=== PATIENT | female | born 1930 | race Caucasian/White ===

== ENCOUNTER → 2018-02-26 | Outpatient (CLI) | payer MEDICARE ==
[~2018-02-26] MED LIST: AEC81 PO; ALBU8.5H8 IH; ATOR10 PO; DILT240T13 PO; FOLI1TAB15 PO; FURO40TA5 PO; IOHEXOL 350 MG/ML 100ML INFUS..BTL IV ONE; ISOS30TA6 PO; LEVO50TA4 PO; POTA10TA18 PO; RIVA15TA PO
== END | disposition home or self-care (01) ==
LOC: RAH 08:05
PROVIDERS: ATTEND Internal Medicine Cardiovascular Disease
DX: I70.202 Unspecified atherosclerosis of native arteries of extremities, left leg (principal); I70.90 Unspecified atherosclerosis; N28.1 Cyst of kidney, acquired; N32.89 Other specified disorders of bladder; K44.9 Diaphragmatic hernia without obstruction or gangrene; K76.89 Other specified diseases of liver; M47.899 Other spondylosis, site unspecified
CPT/HCPCS: 75635; Q9967

== ENCOUNTER 2018-04-16 05:34 | Day surgery (SDC) | payer MEDICARE ==
[2018-04-14 10:44] VITALS: BP 161/79
[2018-04-14 10:58] LABS: BASOPHILS % (AUTO) 1.4 % (0.0-5.0); EOSINOPHILS % (AUTO) 4.1 % (0.0-8.0); HEMATOCRIT 40.3 % (36-48); LYMPHOCYTES % (AUTO) 12.3 % (21.0-51.0); MEAN CORPUSCULAR HEMOGLOBIN 31.3 pg (27.0-33.0); MEAN CORPUSCULAR HGB CONC 33.1 g/dL (32.0-36.0); MEAN CORPUSCULAR VOLUME 94.4 fL (79-99); MONOCYTES % (AUTO) 8.8 % (3.0-13.0); NEUTROPHILS % (AUTO) 73.4 % (40.0-77.0); PLATELET COUNT (AUTO) 366 K/uL (130-400); RED BLOOD CELL COUNT(AUTO) 4.27 MIL/uL (4.00-5.50); RED CELL DISTRIBUTION WIDTH 14.4 % (11.0-15.5)
[2018-04-14 11:00] LABS: BILIRUBIN,URINE Negative (NEGATIVE); COLOR,URINE Yellow (YELLOW); GLUCOSE, URINE (UA) Negative (NEGATIVE); KETONES,URINE Negative (NEGATIVE); LEUKOCYTE ESTERASE ,URINE Trace (NEGATIVE); NITRATE,URINE Negative (NEGATIVE); OCCULT BLOOD,URINE Negative (NEGATIVE); PH,URINE 5.5 (5.0-8.0); PROTEIN,URINE Negative (NEGATIVE)
[2018-04-14 11:02] LABS: APPEARANCE,URINE CLEAR (CLEAR)
[2018-04-14 11:08] LABS: BACTERIA,URINE Rare /HPF (None Seen); CREATININE 1.1 mg/dL (0.5-1.5); POTASSIUM 4.4 mmol/L (3.5-5.1); RBC,URINE 0-1 /HPF (0-1); SQUAMOUS EPITHELIAL CELL,UR Rare /HPF (0-2); WBC,URINE 0-1 /HPF (0-1)
--- NOTE | 2018-04-14 11:14 | NUR ---
med paged I Rk MAN to inform that patient took Xarelto this am. instructed pt to hold effective immediately. awaiting for call back
[2018-04-14 12:08] LABS: INR 1.6 (0.85-1.15); PARTIAL THROMBOPLASTIN TIME 46.2 SEC (26.3-35.5); PROTHROMBIN TIME 16.6 SEC (9.6-11.6)
--- NOTE | 2018-04-15 10:14 | NUR ---
NOTE REPORTED ABNORMAL PT /INR AND XRAY TO [facility]. NO FURTHER ORDERS GIVEN.
[~2018-04-16] VITALS: Ht 152.4 cm; Wt 32.9 kg
[2018-04-16] VITALS (9 sets, daily range): BP systolic 96–150; BP diastolic 39–59
[~2018-04-16 05:34] MED LIST changes: -ALBU8.5H8 IH; -ATOR10 PO; +ATOR10TA69 PO; +CARV6.25 PO; +CYAN100T PO; -IOHEXOL 350 MG/ML 100ML INFUS..BTL IV ONE; -ISOS30TA6 PO; -POTA10TA18 PO; +TRAM50TA4 PO; +vitamin d3 PO
[2018-04-16] MEDS ORDERED: SODIUM CHLORIDE 0.9% 1000ML 1,000 ML IV ONE (06:22)
[2018-04-16] MEDS ORDERED: SODIUM BICARB 50MEQ 50ML VIAL ONE (07:04)
[2018-04-16] MEDS ORDERED: NITROGLYCERIN 5 MG/ML 10 ML VIAL IV ONE (07:04)
[2018-04-16] MEDS ORDERED: HEPARIN SODIUM 1000UNIT/ML 10ML VIAL ONE (07:04)
[2018-04-16] MEDS ORDERED: MIDAZOLAM HCL 1 MG/ML 2ML VIAL ONE (07:05)
[2018-04-16] MEDS ORDERED: MEPERIDINE-PF 25 MG/ML SYG ONE (07:05)
[2018-04-16] MEDS ORDERED: LIDOCAINE HCL 2% 20ML ONE (07:05)
[2018-04-16] MEDS ORDERED: IODIXANOL 320 MG/ML 100 ML VIAL ONE (07:05)
[2018-04-16] MEDS ORDERED: SODIUM CHLORIDE 0.9% 1000ML 1,000 ML IV SCH (09:30)
== END 2018-04-16 14:00 | disposition home or self-care (01) ==
LOC: DAH 05:34
PROVIDERS: ATTEND Internal Medicine Cardiovascular Disease
DX: K55.059 Acute (reversible) ischemia of intestine, part and extent unspecified (principal); I70.218 Atherosclerosis of native arteries of extremities with intermittent claudication, other extremity; I70.0 Atherosclerosis of aorta; I21.9 Acute myocardial infarction, unspecified; I48.2 Chronic atrial fibrillation; E78.5 Hyperlipidemia, unspecified; E03.9 Hypothyroidism, unspecified; I25.10 Atherosclerotic heart disease of native coronary artery without angina pectoris; Z98.890 Other specified postprocedural states; I70.213 Atherosclerosis of native arteries of extremities with intermittent claudication, bilateral legs; Z86.73 Personal history of transient ischemic attack (TIA), and cerebral infarction without residual deficits; Z95.5 Presence of coronary angioplasty implant and graft; Z95.0 Presence of cardiac pacemaker; M81.0 Age-related osteoporosis without current pathological fracture
CPT/HCPCS: 36245 ×2; 36415; 37236; 71045; 75726 ×2; 80048; 81001; 85025; 85610; 85730; 93005; A4606; C1760; C1769 ×2; C1887 ×3; C1894 ×3; J1644 ×2; J2175; J2250; J3490 ×3; J7030; Q9967; 99156; 99157